=== PATIENT | male | born 1955 | race Caucasian/White ===

== ENCOUNTER 2016-05-11 14:26 | Emergency (ER) | payer OTHER ==
[~2016-05-11 14:26] MED LIST: ASPIR-TRIN325 MG PO; B COMPLEX1 EACH PO; BUMEX 1MG TABLET1 MG PO; CATAPRES 0.1MG0.1 MG PO; COREG 25MG TAB25 MG PO; COZAAR100 MG PO; FUROSEMIDE20 MG PO; HYDRALAZINE HCL50 MG PO; INSULIN PUMP SC; K-DUR TAB 20 M20 MEQ PO; LIPITOR TAB 2020 MG PO; NORVASC 5 MG TAB5 MG PO; SNAP INSULIN P1 EACH MC; VENLAFAXINE HCL75 MG PO; VITAMIN D35000 UNIT PO
== END 2016-05-11 20:00 | disposition home or self-care (01) ==
LOC: ER1 14:26
DX: Z53.21 Procedure and treatment not carried out due to patient leaving prior to being seen by health care provider (principal)
CPT/HCPCS: 93005; 99281

== ENCOUNTER → 2016-06-30 | Outpatient (CLI) | payer OTHER | LOC: KOH-I 13:00 | DX: R60.0 Localized edema (principal) | CPT/HCPCS: 93970 ==

== ENCOUNTER → 2020-03-27 | Outpatient (CLI) | payer OTHER ==
[~2020-03-27] MED LIST changes: +ALDACTONE25 MG PO; +BUMETANIDE2 MG PO; +CARDIZEM CD360 MG PO; +COREG6.25 MG PO; +DEXAMETHASONE1 MG PO; +ECOTRIN81 MG PO; +FEOSOL325 MG PO; +LANTUS100 UNIT/1 SQ; +LASIX80 MG PO; +LEVOFLOXACIN500 MG PO; +MIRALAX 119 GR119 GM PO; +NOVOLOG FL100 UNIT/1 INJ; +NOVOLOG100 UNIT/1 SQ; +TOPROL XL50 MG PO; +VENTOLIN HFA 66.7 GM INH; +VITAMIN D35000 UNI1 PO; +ZAROXOLYN/DIULO5 MG PO
== END ==
LOC: KOH-I 12:11
DX: R05 Cough (principal); R06.00 Dyspnea, unspecified; R91.8 Other nonspecific abnormal finding of lung field
CPT/HCPCS: 71046

== ENCOUNTER 2020-03-29 22:28 | Inpatient (IN) | payer MEDICARE ==
[~2020-03-29] VITALS: Ht 185.4 cm; Wt 154.2 kg
[~2020-03-29 22:28] MED LIST changes: -BUMETANIDE2 MG PO; -DEXAMETHASONE1 MG PO; -LEVOFLOXACIN500 MG PO; -NOVOLOG FL100 UNIT/1 INJ
[2020-03-29 23:33] LABS: HEMOGLOBIN 9.3 gm/dl (14.0-17.5); RED BLOOD COUNT 2.89 M/UL (4.20-5.50); WHITE BLOOD COUNT 2.9 K/UL (4.5-11.0)
[2020-03-30] MEDS ORDERED: NOVOLOG FL100 UNIT/1 INJ (03:01)
[2020-03-30] MEDS ORDERED: BUMETANIDE2 MG PO (03:02)
[2020-03-31 03:11] LABS: HEMOGLOBIN 8.9 gm/dl (14.0-17.5); RED BLOOD COUNT 2.82 M/UL (4.20-5.50); WHITE BLOOD COUNT 3.4 K/UL (4.5-11.0)
--- NOTE | 2020-03-31 06:49 | NUR ---
CALLED LAB AROUND 0200 FOR PLASMA AND WAS TOLD AND CONFIRMED 2X THAT THE PLASMA WAS NOT HERE AND IT WOULD BE TODAY BEFORE THE PATIENT WOULD RECIEVE IT.
[2020-04-01 04:14] LABS: HEMOGLOBIN 9.5 gm/dl (14.0-17.5); RED BLOOD COUNT 2.96 M/UL (4.20-5.50)
[2020-04-01 04:15] LABS: WHITE BLOOD COUNT 4.8 K/UL (4.5-11.0)
[2020-04-02] MEDS ORDERED: DEXAMETHASONE1 MG PO (09:36)
[2020-04-02] MEDS ORDERED: LEVOFLOXACIN500 MG PO (09:36)
== END 2020-04-02 13:42 | disposition home or self-care (01) | DRG 177 ==
LOC: ER1 22:28 → CDU 03-30 02:14 → PROG CARE 03-30 02:14
PROVIDERS: Emergency Medicine; Internal Medicine; ADMIT Family Medicine
PROC: 8E0ZXY6 Isolation (ICD-10-PCS; principal; 2020-03-30)
PROC: XW033E5 Introduction of Remdesivir Anti-infective into Peripheral Vein, Percutaneous Approach, New Technology Group 5 (ICD-10-PCS; 2020-03-30)
PROC: XW13325 Transfusion of Convalescent Plasma (Nonautologous) into Peripheral Vein, Percutaneous Approach, New Technology Group 5 (ICD-10-PCS; 2020-03-30)
PROC: 5A09457 Assistance with Respiratory Ventilation, 24-96 Consecutive Hours, Continuous Positive Airway Pressure (ICD-10-PCS; 2020-03-30)
PROC: 5A1D70Z Performance of Urinary Filtration, Intermittent, Less than 6 Hours Per Day (ICD-10-PCS; 2020-04-01)
DX: U07.1 COVID-19 (principal); J12.82 Pneumonia due to coronavirus disease 2019; J96.01 Acute respiratory failure with hypoxia; N18.6 End stage renal disease; D61.818 Other pancytopenia; I12.0 Hypertensive chronic kidney disease with stage 5 chronic kidney disease or end stage renal disease; R79.89 Other specified abnormal findings of blood chemistry; E86.0 Dehydration; E11.22 Type 2 diabetes mellitus with diabetic chronic kidney disease; E78.5 Hyperlipidemia, unspecified; Z79.899 Other long term (current) drug therapy; D69.6 Thrombocytopenia, unspecified; Z79.82 Long term (current) use of aspirin; Z79.4 Long term (current) use of insulin; Z99.2 Dependence on renal dialysis
CPT/HCPCS: 36415; 36600; 71045; 80053; 80202; 82550; 82553; 82728; 82803; 82962; 83615; 83735; 83874; 84484; 85025; 85027; 85379; 85610; 85730; 86900; 86901; 86927; 87040; 87081; 90935; 93005; 93970; 94640; 94660; 96365; 96366; 96367; 96368; 96372; 96375; 96376; 99285; J0696; J1100; J1644; J2543; J3370; J7030; J7070; U0002

== ENCOUNTER → 2020-04-16 | Outpatient (CLI) | payer MEDICARE ==
[~2020-04-16] MED LIST changes: +BUMETANIDE2 MG PO; +DEXAMETHASONE1 MG PO; +LEVOFLOXACIN500 MG PO; +NOVOLOG FL100 UNIT/1 INJ
== END ==
LOC: EXRD 11:01
DX: U07.1 COVID-19 (principal); J18.9 Pneumonia, unspecified organism; R91.8 Other nonspecific abnormal finding of lung field
CPT/HCPCS: 71046

== ENCOUNTER → 2020-12-05 | Outpatient (CLI) | payer MEDICARE | LOC: KOH-I 13:21 | DX: I73.9 Peripheral vascular disease, unspecified (principal) | CPT/HCPCS: 93922; 93925 ==

== ENCOUNTER → 2021-03-13 | Day surgery (SDC) | payer MEDICARE ==
[~2021-03-13] MED LIST changes: +ARNUITY ELLIP100 MCG INH; +AURYXIA210 MG PO; +CARVEDILOL25 MG PO; +MIRAPEX0.5 MG PO; +PHOSLO 667 MG667 MG PO; +TRAZODONE HCL50 MG PO
== END | disposition home or self-care (01) ==
LOC: OR 05:35
PROVIDERS: Internal Medicine Gastroenterology
PROC: 0DBK8ZX Excision of Ascending Colon, Via Natural or Artificial Opening Endoscopic, Diagnostic (ICD-10-PCS; 2021-03-13)
PROC: 0DBL8ZX Excision of Transverse Colon, Via Natural or Artificial Opening Endoscopic, Diagnostic (ICD-10-PCS; 2021-03-13)
PROC: 0DBH8ZX Excision of Cecum, Via Natural or Artificial Opening Endoscopic, Diagnostic (ICD-10-PCS; 2021-03-13)
PROC: 0DB68ZX Excision of Stomach, Via Natural or Artificial Opening Endoscopic, Diagnostic (ICD-10-PCS; principal; 2021-03-13 07:30)
PROC: 0DB78ZX Excision of Stomach, Pylorus, Via Natural or Artificial Opening Endoscopic, Diagnostic (ICD-10-PCS; 2021-03-13 07:30)
DX: K31.819 Angiodysplasia of stomach and duodenum without bleeding (principal); K29.50 Unspecified chronic gastritis without bleeding; D12.2 Benign neoplasm of ascending colon; D12.0 Benign neoplasm of cecum; D12.3 Benign neoplasm of transverse colon; K64.1 Second degree hemorrhoids; D50.0 Iron deficiency anemia secondary to blood loss (chronic); I12.0 Hypertensive chronic kidney disease with stage 5 chronic kidney disease or end stage renal disease; E11.22 Type 2 diabetes mellitus with diabetic chronic kidney disease; N18.6 End stage renal disease; G47.33 Obstructive sleep apnea (adult) (pediatric); E78.00 Pure hypercholesterolemia, unspecified; E66.01 Morbid (severe) obesity due to excess calories; Z68.43 Body mass index [BMI] 50.0-59.9, adult; Z79.4 Long term (current) use of insulin; Z79.82 Long term (current) use of aspirin; Z79.899 Other long term (current) drug therapy; Z86.010 Personal history of colon polyps; Z95.5 Presence of coronary angioplasty implant and graft; Z20.822 Contact with and (suspected) exposure to COVID-19; Z86.16 Personal history of COVID-19; Z99.2 Dependence on renal dialysis
CPT/HCPCS: 82962; J2001; J2704; J7040

== ENCOUNTER → 2021-04-22 | Outpatient (CLI) | payer MEDICARE | LOC: KOH-I 09:59 | DX: K31.819 Angiodysplasia of stomach and duodenum without bleeding (principal); R16.0 Hepatomegaly, not elsewhere classified | CPT/HCPCS: 76705 ==

== ENCOUNTER → 2021-05-15 | Outpatient (CLI) | payer MEDICARE | LOC: EXRD 10:38 | DX: U07.1 COVID-19 (principal) | CPT/HCPCS: 71046 ==

== ENCOUNTER 2021-09-03 12:41 | Observation (INO) | payer MEDICARE ==
[~2021-09-03] VITALS: Ht 185.4 cm; Wt 142.4 kg
[~2021-09-03 12:41] MED LIST changes: +HYDRALAZINE HC100 MG PO; -HYDRALAZINE HCL50 MG PO; -LIPITOR TAB 2020 MG PO; +LIPITOR80 MG PO; +NORVASC10 MG PO; -NOVOLOG FL100 UNIT/1 INJ; +NOVOLOG MI100 UNIT/1 INJ
[2021-09-03 14:05] LABS: HEMOGLOBIN 9.7 gm/dl (14.0-17.5); RED BLOOD COUNT 3.15 M/UL (4.20-5.50); WHITE BLOOD COUNT 4.1 K/UL (4.5-11.0)
[2021-09-03] MEDS ORDERED: MIRTAZAPINE30 MG PO (16:28)
[2021-09-04 06:22] LABS: RED BLOOD COUNT 2.93 M/UL (4.20-5.50)
[2021-09-04 06:24] LABS: WHITE BLOOD COUNT 6.1 K/UL (4.5-11.0)
--- NOTE | 2021-09-04 15:02 | NUR ---
patient back on the floor from his dialysis
--- NOTE | 2021-09-04 15:17 | NUR ---
notifed dr. newell on patient back on the floor for dialysis and home medications needs recondilation and b/p elevated and stated he will see patient and acknowledged
[2021-09-05 02:24] LABS: HEMOGLOBIN 7.7 gm/dl (14.0-17.5); RED BLOOD COUNT 2.54 M/UL (4.20-5.50); WHITE BLOOD COUNT 4.5 K/UL (4.5-11.0)
--- NOTE | 2021-09-05 08:15 | NUR ---
PATIENT TAKEN TO DIALYSIS FOR TREATMENT
[2021-09-06 08:12] LABS: HBSAG SCREEN Negative (Negative); HCV AB <0.1 (0.0-0.9); HEP A AB, IGM Negative (Negative); HEP B CORE AB, IGM Negative (Negative)
== END 2021-09-05 16:37 | disposition home or self-care (01) ==
LOC: ER1 12:41 → CDU 16:32 → MED SURG 4 16:32
PROVIDERS: Internal Medicine; Physician Assistant; Physician Assistant Medical; ADMIT Internal Medicine
DX: I13.2 Hypertensive heart and chronic kidney disease with heart failure and with stage 5 chronic kidney disease, or end stage renal disease (principal); E11.22 Type 2 diabetes mellitus with diabetic chronic kidney disease; N18.6 End stage renal disease; I50.9 Heart failure, unspecified; Z20.822 Contact with and (suspected) exposure to COVID-19; Z99.2 Dependence on renal dialysis; E78.5 Hyperlipidemia, unspecified; J44.9 Chronic obstructive pulmonary disease, unspecified; D63.1 Anemia in chronic kidney disease; E66.9 Obesity, unspecified; Z68.41 Body mass index [BMI] 40.0-44.9, adult; Z79.4 Long term (current) use of insulin; Z79.899 Other long term (current) drug therapy
CPT/HCPCS: 36415; 71045; 80048; 80053; 80074; 82550; 82553; 82962; 83735; 83880; 84484; 85025; 85027; 87040; 90937; 93005; 96374; 99285; G0378; J1940; U0002